=== PATIENT | male | born 1960 | race Caucasian/White ===

== ENCOUNTER 2021-01-04 22:02 | Inpatient (IN) | payer BC, SELFPAY ==
[~2021-01-04] VITALS: Ht 182.9 cm; Wt 106.6 kg
[2021-01-04 22:02] VITALS: BP_SYST 200
[2021-01-04] MEDS ORDERED: NACL 0.9% 2,000 ML IV ONE (22:45)
[2021-01-04] MEDS ORDERED: LORazepam 2 MG/ML VIAL IVP ONE (22:45)
[2021-01-04 23:19] LABS: BASOPHILS % (AUTO) 0.4 % (0.0-2.0); EOSINOPHILS # (AUTO) 0.1 K/uL (0.0-0.4); EOSINOPHILS % (AUTO) 0.7 % (0.0-4.0); HEMATOCRIT 35.9 % (36-54); HEMOGLOBIN 12.3 g/dL (14.0-18.0); LYMPHOCYTES # (AUTO) 0.9 K/uL (1.0-5.5); LYMPHOCYTES % (AUTO) 12.5 % (20.5-51.5); MEAN CORPUSCULAR HEMOGLOBIN 33 pg (27-31); MEAN CORPUSCULAR HGB CONC 34 % (32-36); MEAN CORPUSCULAR VOLUME 97 fL (79.0-98.0); MONOCYTES # (AUTO) 0.6 K/uL (0.0-1.0); MONOCYTES % (AUTO) 7.6 % (1.7-9.3); NEUTROPHILS # (AUTO) 5.7 K/uL (1.8-7.7); NEUTROPHILS % (AUTO) 78.8 % (40.0-70.0); PLATELET COUNT (AUTO) 105 K/uL (130-430); RED BLOOD CELL COUNT(AUTO) 3.71 MIL/uL (4.2-6.2); RED CELL DISTRIBUTION WIDTH 13.8 % (9.0-15.0); WHITE BLOOD COUNT (AUTO) 7.3 K/uL (4.8-10.8)
[2021-01-04 23:27] LABS: CALCIUM 8.6 mg/dL (8.4-11.0); CREATININE 1.73 mg/dL (0.55-1.30); POTASSIUM 3.3 mmol/L (3.5-5.1)
[2021-01-04 23:32] LABS: ALBUMIN 3.7 g/dL (3.4-4.8); TOTAL BILIRUBIN 1.1 mg/dL (0.0-1.0)
[2021-01-05] LABS: BARBITURATE, URINE NEGATIVE (NEG <=200); BENZODIAZEPINE, URINE NEGATIVE (NEG <=150); CANNABINOID, URINE NEGATIVE (NEG <=50); COCAINE, URINE NEGATIVE (NEG <=150); METHAMPHETAMINES SCREEN,URINE NEGATIVE (NEG <=500); OPIATE, URINE NEGATIVE (NEG <=100); PHENCYCLIDINE SCREEN,URINE NEGATIVE (NEG <=25); UR TRICYCLIC ANTIDEPRESSANTS NEGATIVE (NEG <=300); URINE AMPHETAMINE NEGATIVE (NEG <=500); URINE METHADONE NEGATIVE (NEG <=200); URINE OXYCODONE SCREEN NEGATIVE (NEG <=100); URINE PROPOXYPHENE SCREEN NEGATIVE (NEG <=300)
[2021-01-05] MEDS ORDERED: LIB25 PO (01:08)
[2021-01-05] MEDS ORDERED: chlordiazePOXIDE HCL 25 MG CAPSULE PO ONE (01:15)
[2021-01-05] MEDS ORDERED: POTASSIUM CHLORIDE 20 MEQ TAB.PRT.SR PO ONE (01:15)
[2021-01-05] MEDS ORDERED: LORazepam 2 MG/ML VIAL IVP ONE (01:30)
[2021-01-05] MEDS ORDERED: chlordiazePOXIDE HCL 10 MG CAPSULE ONE (01:35)
[2021-01-05] MEDS ORDERED: NACL 0.9% 1,000 ML IV ONE (02:00)
[2021-01-05] MEDS ORDERED: FOLIC ACID 1 MG, THIAMINE HCL 100 MG, MAGNESIUM SULFATE 2 GM, MVI 10 ML in NACL 0.9% 1,... IV ONE (02:00)
[2021-01-05] MEDS ORDERED: MAGNESIUM SULFATE 1 GM/2 ML VIAL ONE (02:26)
[2021-01-05] MEDS ORDERED: MVI 10 ML VIAL IV ONE (02:26)
[2021-01-05] MEDS ORDERED: FOLIC ACID 5 MG/ML VIAL IV ONE (02:26)
[2021-01-05] MEDS ORDERED: THIAMINE HCL 100 MG/ML VIAL ONE (02:26)
[2021-01-05] MEDS ORDERED: FOLIC ACID 1 MG, THIAMINE HCL 100 MG, MAGNESIUM SULFATE 1 GM, MVI 10 ML in NACL 0.9% 1,... IV SCH (02:45)
[2021-01-05] MEDS ORDERED: LORazepam 2 MG/ML VIAL IVP PRN ×2 (02:45→12:30)
[2021-01-05] MEDS ORDERED: HYDROcodone/ACETAMIN 10-325 MG TAB PO PRN (12:30)
[2021-01-05] MEDS ORDERED: NALOXONE HCL 0.4 MG/ML AMP (NARCAN) IVP PRN ×2 (12:30)
[2021-01-05] MEDS ORDERED: ACETAMINOPHEN 325 MG TABLET PO PRN (12:30)
[2021-01-05] MEDS ORDERED: ONDANSETRON HCL 4 MG/2 ML VIAL IVP PRN (12:30)
[2021-01-05] MEDS ORDERED: HYDROcodone/ACETAMIN 5-325 MG TAB (NORCO/ VICODIN) PO PRN (12:30)
[2021-01-05] MEDS ORDERED: chlordiazePOXIDE HCL 25 MG CAPSULE PO SCH (12:30)
[2021-01-05] MEDS ORDERED: MAGNESIUM SULFATE 4 GM in D5W 250 ML IV ONE (13:45)
[2021-01-05] MEDS ORDERED: THIAMINE HCL 100 MG, MAGNESIUM SULFATE 1 GM in NS 100 ML IV ONE ×6 (15:00)
[2021-01-05] MEDS ORDERED: FOLIC ACID 1 MG, MVI 10 ML in NACL 0.9% 1,000 ML IV ONE ×6 (15:00)
[2021-01-05 16:30] VITALS: BP_SYST 141
[2021-01-05 20:00] VITALS: BP_SYST 124
[2021-01-06 08:00] VITALS: BP_SYST 153
[2021-01-06 08:13] LABS: BASOPHILS % (AUTO) 0.2 % (0.0-2.0); EOSINOPHILS # (AUTO) 0.1 K/uL (0.0-0.4); EOSINOPHILS % (AUTO) 1.5 % (0.0-4.0); HEMATOCRIT 35.4 % (36-54); HEMOGLOBIN 11.8 g/dL (14.0-18.0); LYMPHOCYTES # (AUTO) 1.2 K/uL (1.0-5.5); LYMPHOCYTES % (AUTO) 17.9 % (20.5-51.5); MEAN CORPUSCULAR HEMOGLOBIN 33 pg (27-31); MEAN CORPUSCULAR HGB CONC 33 % (32-36); MEAN CORPUSCULAR VOLUME 100 fL (79.0-98.0); MONOCYTES # (AUTO) 0.8 K/uL (0.0-1.0); MONOCYTES % (AUTO) 11.3 % (1.7-9.3); NEUTROPHILS # (AUTO) 4.8 K/uL (1.8-7.7); NEUTROPHILS % (AUTO) 69.1 % (40.0-70.0); PLATELET COUNT (AUTO) 93 K/uL (130-430); RED BLOOD CELL COUNT(AUTO) 3.56 MIL/uL (4.2-6.2)
[2021-01-06 09:17] LABS: CALCIUM 8.5 mg/dL (8.4-11.0); CREATININE 1.1 mg/dL (0.55-1.30); PHOSPHORUS 4.1 mg/dL (2.7-4.5); POTASSIUM 3.3 mmol/L (3.5-5.1)
[2021-01-06] MEDS ORDERED: POTASSIUM CHLORIDE 20 MEQ TAB.PRT.SR PO ONE (11:15)
[2021-01-06 11:41] VITALS: BP_SYST 148
== END 2021-01-06 13:15 | DRG 101 ==
LOC: SED 22:02 → STU 01-05 02:42
PROVIDERS: ADMIT Preventive Medicine Preventive Medicine/Occupational Environmental Medicine; ATTEND Preventive Medicine Preventive Medicine/Occupational Environmental Medicine
DX: G40.909 Epilepsy, unspecified, not intractable, without status epilepticus (principal); F10.139 Alcohol abuse with withdrawal, unspecified; E87.1 Hypo-osmolality and hyponatremia; N17.9 Acute kidney failure, unspecified; E87.2 Acidosis; Y90.9 Presence of alcohol in blood, level not specified; D64.9 Anemia, unspecified; E87.6 Hypokalemia; E83.42 Hypomagnesemia; R74.01 Elevation of levels of liver transaminase levels; Z20.822 Contact with and (suspected) exposure to COVID-19; D69.6 Thrombocytopenia, unspecified; E78.5 Hyperlipidemia, unspecified; I12.9 Hypertensive chronic kidney disease with stage 1 through stage 4 chronic kidney disease, or unspecified chronic kidney disease; N18.9 Chronic kidney disease, unspecified
CPT/HCPCS: 36415; 70450-TC; 71045; 76376; 80048; 80053; 80307; 82962; 83735; 84100; 85025; 93005; 96361; 96365; 96366; 96375; 96376; 99291; G0378; G0482; J2060; J3411; J3475; J3490; J7030; J7060